=== PATIENT | male | born 1995 | race African-American/Black ===

== ENCOUNTER 2020-11-05 17:41 | Emergency (ER) | payer SELFPAY ==
[2020-11-05] MEDS ORDERED: Bacitracin 1 PK ONE (21:21)
[2020-11-05] MEDS ORDERED: cefTRIAXone\\ROCEPHIN 1 GM VIAL ONE (21:21)
[2020-11-05] MEDS ORDERED: Lidocaine 1% (PF) 30 ML VIAL ONE (21:21)
[2020-11-05] MEDS ORDERED: Ibuprofen 200 MG TAB ONE (21:21)
== END 2020-11-05 22:00 | disposition home or self-care (01) ==
LOC: CSHERS 17:41
DX: L03.115 Cellulitis of right lower limb (principal)
CPT/HCPCS: 96372; 99283; J0696; J2001